=== PATIENT | female | born 1980 ===

== ENCOUNTER 2021-09-27 22:56 | Inpatient (IN) | payer SELFPAY ==
[2021-09-28 00:15] LABS: Bacteria,Urine 2+ /HPF (Negative); Bilirubin,Urine NEG (Negative); Blood,Urine MOD (Negative); Color,Urine Straw (Yellow); Mucus,Urine FEW /HPF; Urobilinogen,Urine < 2.0 mg/dL (<2.0)
[2021-09-28 00:18] LABS: Basophils # (Auto) 0.1 K/mm3 (0.0-0.1); Basophils % (Auto) 0.9 % (0.0-1.8); Eosinophils % (Auto) 0.6 % (0.0-4.3); Hematocrit 29.4 % (30.3-42.9); Hemoglobin 9.9 gm/dl (10.1-14.3); Lymphocytes # (Auto) 2.1 K/mm3 (1.2-5.4); Lymphocytes % (Auto) 25.5 % (13.4-35.0); Mean Corpuscular HGB Conc 34 % (30-34); Mean Corpuscular Volume 81 fl (79-97); Monocytes # (Auto) 0.4 K/mm3 (0.0-0.8); Monocytes % (Auto) 5.4 % (0.0-7.3); Platelet Count 251 K/mm3 (140-440); Red Blood Count 3.64 M/mm3 (3.65-5.03); Red Cell Distribution Width 17.8 % (13.2-15.2)
[2021-09-28 00:23] LABS: Creatinine,Urine 25.5 mg/dL (0.1-20.0)
[2021-09-28 00:32] LABS: Alanine Aminotransferase 13 units/L (7-56); Blood Urea Nitrogen 9 mg/dL (7-17); Calcium 8.3 mg/dL (8.4-10.2)
[2021-09-28 00:37] LABS: Albumin 2.8 g/dL (3.9-5); Hemolysis Index 27
[2021-09-28 00:42] LABS: BUN/Creatinine Ratio 18
[2021-09-28 01:21] LABS: Uric Acid 5.6 mg/dL (3.5-7.6)
--- NOTE | 2021-09-28 02:18 | Ultrasound Report ---
US OB follow up INDICATION / CLINICAL INFORMATION: Elevated BP COMPARISON: OB ultrasound 06/18/2018. No ultrasound images from current gestation are available. TECHNIQUE: Using a transcutaneous probe, multiple grayscale, color Doppler, and spectral Doppler imag es of the uterus and fetus were captured and stored. FINDINGS: Single cephalic fetus with heart rate of 152 bpm is demonstrated. Amniotic fluid index is normal measuring 10.9 cm EDUAR. Posterior/right lateral grade 1 placenta is demonstrated. Biparietal Diameter = 8.4 cm = 34, 0 weeks, days Head Circumference = 31.6 cm = 35, 3 weeks, days Abdominal Circumference = 30.1 cm = 34, 0 weeks, days Femur Length = 6.9 cm = 35, 4 weeks, days Average Ultrasound Age (AUA) = 34, 5 weeks, days Clinical age is 38 weeks 1 day based on LMP 01/04/2021. Estimated weight = 2475 g. IMPRESSION: 1. Single fetus with active heart rate with estimated composite gestational age of 34 weeks 5 days. Signer Name: Mehdi Wade II, MD Signed: 09/28/2021 2:14 AM Workstation Name: [id number]
[2021-09-28] MEDS ORDERED: ACETAMINOPHEN 325 MG TAB PO PRN (02:27)
[2021-09-28] MEDS ORDERED: TERBUTALINE 1 MG/1 ML INJ SUB-Q PRN (02:27)
[2021-09-28] MEDS ORDERED: fentaNYL 100 MCG/2 ML INJ IV PRN (02:27)
[2021-09-28] MEDS ORDERED: CARBOPROST TROMETHAMINE 250 MCG/1 ML INJ IM PRN (02:27)
[2021-09-28] MEDS ORDERED: BUTORPHANOL 2 MG/1 ML INJ IV PRN (02:27)
--- NOTE | 2021-09-28 02:27 | History and Physical Report ---
History of Present Illness Date of examination: 09/28/21 Date of admission: 09/28/2021 Chief complaint: Contractions History of present illness: 40-year-old at 38-1/7 weeks gestation presents to OB triage reporting contractions that are irregular. There is no vaginal bleeding. There is good movement. There is no leakage of fluid. Cervical exam was less than 1 cm dilated. In OB triage, the patient's blood pressures were greater than 140/90's. UPCR was elevated, and an estimated 24-hour urine protein value was greater than 600 mg. As such the patient fulfilled the criteria for preeclampsia. In addition, bedside ultrasound revealed that the estimated weight was in the 3rd percentile. As such, this patient fulfills the criteria for growth restriction. The patient is admitted to labor and delivery for induction of labor secondary to preeclampsia at 38 weeks gestation and growth restriction. Past History Past Medical History: no pertinent history Past Surgical History: no surgical history Family/Genetic History: none Social history: no significant social history - Obstetrical History Expected Date of Delivery: 10/11/21 Actual Gestation: 38 Week(s) 1 Day(s) : 4 Para: 3 Hx # Term Pregnancies: 3 Medications and Allergies Allergies Allergy/AdvReac Type Severity Reaction Status Date / Time No Known Allergies Allergy Verified 06/18/18 05:31 Review of Systems All systems: negative - Vital Signs Vital signs: Vital Signs Pulse Pulse Ox 81 99 09/27/21 23:13 09/27/21 23:13 Temp Pulse Resp BP Pulse Ox 98.1 F 76 146/79 97 09/27/21 23:23 09/28/21 02:23 09/28/21 01:17 09/28/21 02:23 - Physical Exam Breasts: Positive: normal Cardiovascular: Regular rate Lungs: Positive: Normal air movement Abdomen: Positive: normal appearance Genitourinary (Female): Positive: normal external genitalia, normal perenium Vulva: both: normal Vagina: Positive: normal moisture Uterus: Positive: enlarged Adnexa: both: normal Anus/Rectum: Positive: normal perianal skin Extremities: Positive: normal Deep Tendon Reflex Grade: Normal +2 - Obstetrical FHR: category 1 Uterine Contraction Monitor Mode: External Cervical Dilatation: 0.5 Cervical Effacement Percentage: 0 station: -3 Uterine Contraction Frequency (min): 8 Uterine Contraction Pattern: Irregular Results Result Diagrams: 09/28/21 04:16 09/27/21 23:58 Abnormal lab results 09/27/21 09/27/21 09/27/21 Range/Units 23:58 23:58 23:58 RBC 3.64 L (3.65-5.03) M/mm3 Hgb 9.9 L (10.1-14.3) gm/dl Hct 29.4 L (30.3-42.9) % MCH 27 L (28-32) pg RDW 17.8 H (13.2-15.2) % Sodium (137-145) mmol/L Carbon Dioxide (22-30) mmol/L Creatinine (0.6-1.2) mg/dL Calcium (8.4-10.2) mg/dL Alkaline Phosphatase (35-129) units/L Lactate Dehydrogenase (91-180) units/L Albumin (3.9-5) g/dL Urine WBC (Auto) 7.0 H (0.0-6.0) /HPF Urine Creatinine 25.5 H (0.1-20.0) mg/dL Urine Total Protein 50 H (5-11.8) mg/dL 09/27/21 Range/Units 23:58 RBC (3.65-5.03) M/mm3 Hgb (10.1-14.3) gm/dl Hct (30.3-42.9) % MCH (28-32) pg RDW (13.2-15.2) % Sodium 134 L (137-145) mmol/L Carbon Dioxide 19 L (22-30) mmol/L Creatinine 0.5 L (0.6-1.2) mg/dL Calcium 8.3 L (8.4-10.2) mg/dL Alkaline Phosphatase 139 H (35-129) units/L Lactate Dehydrogenase 214 H (91-180) units/L Albumin 2.8 L (3.9-5) g/dL Urine WBC (Auto) (0.0-6.0) /HPF Urine Creatinine (0.1-20.0) mg/dL Urine Total Protein (5-11.8) mg/dL All other labs normal. Ultrasound: report reviewed Assessment and Plan - Patient Problems (1) 38 weeks gestation of Current Visit: Yes Status: Acute Plan to address problem: care is up-to-date at [facility] . The GBS status is unknown at this time. Obtain records from the office during the day shift. Currently, the patient has no known risk factors for group B strep. Hence, no antibiotic prophylaxis at this time. If the patient is determined to have risk factors or develops risk factors for group B strep, then we will treat with penicillin at that time. (2) Preeclampsia Current Visit: Yes Status: Acute Plan to address problem: The patient has blood pressures greater than >140/90. UPCR is elevated and rev eals an estimated 24-hour urine protein greater than 600 mg. As such, this patient carries a diagnosis of preeclampsia at this time. The plan is induction of labor. (3) growth retardation, antepartum Current Visit: Yes Status: Acute Plan to address problem: The estimated weight is in the 3rd percentile. Etiology is unknown. The plan is induction of labor. (4) Advanced maternal age during in third trimester Current Visit: Yes Status: Acute Plan to address problem: Obtain records during the morning shift to review any genetic testing performed for this patient. (5) Encounter for induction of labor Current Visit: Yes Status: Acute Plan to address problem: Admit to labor and delivery. Ripen cervix with Cytotec.
[2021-09-28] MEDS ORDERED: LACTATED RINGERS 1,000 ML IV SCH (02:30)
[2021-09-28] MEDS ORDERED: miSOPROStol 25 MCG TAB PO SCH (03:00)
[2021-09-28] MEDS ORDERED: OXYTOCIN DRIP 30 UNITS/500 ML BAG IV SCH ×2 (03:00→08:00)
[2021-09-28 05:22] LABS: Hemoglobin 10.5 gm/dl (10.1-14.3); Mean Corpuscular HGB Conc 33 % (30-34); Mean Corpuscular Volume 81 fl (79-97); Platelet Count 270 K/mm3 (140-440); Red Blood Count 3.95 M/mm3 (3.65-5.03); Red Cell Distribution Width 17.9 % (13.2-15.2)
--- NOTE | 2021-09-28 06:31 | Procedure Note ---
OB Delivery Note - Delivery Date of Delivery: 09/28/21 Surgeon: CHRISTINE CARTER Water Rights Specialist: SEGUN CRUZ Estimated blood loss: 200cc - Vaginal Delivery presentation: vertex Delivery position: OA Intrapartum events: preeclampsia, precipitous labor- <3hr, other(please specify) ( growth restrcition, Advanced maternal age) Delivery induction: misoprostol (Mispoprostol was ordered for cervical ripening prior to induction of labor. However, that was not required as patient entered spontaneous labor.) Delivery monitor: external FHT, external uterine Route of delivery: Delivery placenta: spontaneous Delivery cord: 3 umbilical vessels Episiotomy: none Delivery laceration: 2nd degree Delivery repair: vicryl Anesthesia: local Delivery comments: This was a precipitous delivery. Second-degree laceration was repaired with 2-0 Vicryl. While this patient was diagnosed with preeclampsia, the patient had no signs or symptoms of severe features.
[2021-09-28] MEDS ORDERED: LANOLIN/ZINC/DIMETHICONE (LANSINOH) 7 GM TP PRN (06:33)
[2021-09-28] MEDS ORDERED: WITCH HAZEL/ GLYCERIN PAD TP PRN (06:33)
[2021-09-28] MEDS ORDERED: HYDROcodone/ACETAMINOPHEN 5-325 MG TAB PO PRN (06:33)
[2021-09-28] MEDS ORDERED: diphenhydrAMINE 25 MG CAP PO PRN (06:33)
[2021-09-28] MEDS ORDERED: ONDANSETRON 4 MG/2 ML INJ IV PRN (06:33)
[2021-09-28] MEDS ORDERED: MAGNESIUM HYDROXIDE (MOM) ORAL LIQD UDC PO PRN (06:33)
[2021-09-28 07:15] LABS: Hemoglobin 9.7 gm/dl (10.1-14.3); Mean Corpuscular HGB Conc 32 % (30-34); Mean Corpuscular Volume 81 fl (79-97); Platelet Count 244 K/mm3 (140-440); Red Blood Count 3.71 M/mm3 (3.65-5.03); Red Cell Distribution Width 17.5 % (13.2-15.2)
[2021-09-28 15:55] LABS: Hemoglobin 9.3 gm/dl (10.1-14.3)
[2021-09-28] MEDS: DOCUSATE SODIUM 100 MG CAP PO SCH ×2 (17:40→23:58)
[2021-09-28] MEDS: ACETAMINOPHEN 325 MG TAB PO PRN (17:40)
[2021-09-28] MEDS: PRENATAL VIT27-FE FUMARATE-FOLIC ACID VIT TAB PO SCH (17:44)
--- NOTE | 2021-09-29 10:35 | Progress Note ---
Assessment and Plan PPD#1 with asymptomatic anemia 1. Routine care and peds has baby on 48hr hold 2. For discharge home tomorrow Subjective Date of service: 09/29/21 Principal diagnosis: PPD#1 with pre-eclampsia, BP wnl Interval history: pt has no complaints. Denies headache. pt wants to go home today. Vag bleed less than a period and pt is bottle feeding now. Objective - Constitutional Vitals: Vital Signs - 12hr 09/29/21 09/29/21 09/29/21 00:22 04:30 07:28 Temperature 98.6 F 98.4 F 97.8 F Pulse Rate 76 78 78 Respiratory 18 18 20 Rate Blood Pressure 126/63 119/69 Blood Pressure 99/78 [Left] O2 Sat by Pulse 98 95 Oximetry O2 Sat by Pulse Oximetry [ Bilateral Throughout] 09/29/21 08:27 Temperature Pulse Rate Respiratory Rate Blood Pressure Blood Pressure [Left] O2 Sat by Pulse Oximetry O2 Sat by Pulse 98 Oximetry [ Bilateral Throughout] General appearance: Present: no acute distress - Neck Neck: normal ROM - Respiratory Respiratory effort: normal - Breasts Breasts: normal - Cardiovascular Rhythm: regular Extremities: No edema - Gastrointestinal General gastrointestinal: Present: soft, non-tender - Genitourinary Female genitourinary: other (Fundus firm, 1cm below umbilicus; lochia small) - Neurologic Neurologic: moves all extremities - Psychiatric Psychiatric: cooperative - Labs CBC & Chem 7: 09/28/21 15:28 09/27/21 23:58 Labs: Abnormal lab results 09/28/21 Range/Units 15:28 Hgb 9.3 L (10.1-14.3) gm/dl Hct 28.0 L (30.3-42.9) % Medications & Allergies - Medications Allergies/Adverse Reactions: Allergies No Known Allergies Allergy (Verified 06/18/18 05:31) Home Medications: Home Medications Medication Instructions Recorded Confirmed Last Taken Type No Known Home Medications [No 09/28/21 09/28/21 Unknown History Reported Home Medications] Active Medications: Generic Name Dose Route Start Last Admin Trade Name Freq PRN Reason Stop Dose Admin Acetaminophen 650 mg 09/28/21 06:33 09/28/21 17:40 Acetaminophen 325 Mg Tab PO 650 mg Q4H PRN Administration Pain MILD(1-3)/Fever >100.5/TIJERINA Hydrocodone Bitart/Acetaminophen 2 each 09/28/21 06:33 09/28/21 08:42 Hydrocodone/Acetaminophen 5-325 Mg Tab PO 2 each Q6H PRN Administration Pain, Moderate (4-6) Diphenhydramine HCl 25 mg 09/28/21 06:33 Diphenhydramine 25 Mg Cap PO Q6H PRN Itching Docusate Sodium 100 mg 09/28/21 10:00 09/28/21 23:58 Docusate Sodium 100 Mg Cap PO 100 mg BID BAR Administration Oxytocin/Sodium Chloride 30 units in 500 mls @ 1 mls/hr 09/28/21 08:00 Pitocin/Ns 30 Unit/500ml IV TITR BAR Protocol 1 MILLIUNITS/MIN Magnesium Hydroxide 30 ml 09/28/21 06:33 Magnesium Hydroxide (Mom) Oral Liqd Udc PO HS PRN Constipation Multi-Ingredient Ointment 1 applic 09/28/21 06:33 Lanolin/Zinc/Dimethicone (Lansinoh) 7 Gm TP PRN PRN Sore Nipples Multivitamins/Iron/Calcium 1 each 09/28/21 10:00 09/28/21 17:44 [id number] Fumarate-Folic Acid Vit Tab PO 1 each QDAY BAR Administration Ondansetron HCl 4 mg 09/28/21 06:33 Ondansetron 4 Mg/2 Ml Inj IV Q8H PRN Nausea And Vomiting Sodium Chloride 10 ml 09/28/21 07:00 Sodium Chloride 0.9% 10 Ml Flush Syringe IV PRN PRN LINE FLUSH Witch Letty/Glycerin 1 each 09/28/21 06:33 Witch Letty/ Glycerin Pad TP PRN PRN Hemorrhoid/cleansing/soothing
[2021-09-29] MEDS: DOCUSATE SODIUM 100 MG CAP PO SCH ×2 (12:56→23:17)
[2021-09-29] MEDS: PRENATAL VIT27-FE FUMARATE-FOLIC ACID VIT TAB PO SCH (12:57)
--- NOTE | 2021-09-30 08:18 | Progress Note ---
Assessment and Plan PPD#2 , asymptomatic anemia 1. Routine PP care and discharge pt home Subjective Date of service: 09/30/21 Principal diagnosis: PPD#2 Interval history: Pt denies headache and has no complaints Objective - Constitutional Vitals: Vital Signs - 12hr 09/29/21 09/30/21 09/30/21 22:50 00:08 07:21 Temperature 98.0 F 98.3 F Pulse Rate 81 80 Respiratory 18 20 Rate Blood Pressure 136/71 135/71 O2 Sat by Pulse 93 94 Oximetry O2 Sat by Pulse 95 Oximetry [ Bilateral Throughout] General appearance: Present: no acute distress - Respiratory Respiratory effort: normal - Breasts Breasts: deferred - Cardiovascular Rhythm: regular Extremities: No edema - Gastrointestinal General gastrointestinal: Present: soft, non-tender - Genitourinary Female genitourinary: other (Fundus firm, 3cm below umbilicus, non-tender. Lochia small) - Integumentary Integumentary: warm, dry - Neurologic Neurologic: moves all extremities - Psychiatric Psychiatric: cooperative - Labs CBC & Chem 7: 09/28/21 15:28 09/27/21 23:58 Medications & Allergies - Medications Allergies/Adverse Reactions: Allergies No Known Allergies Allergy (Verified 06/18/18 05:31) Home Medications: Home Medications Medication Instructions Recorded Confirmed Last Taken Type No Known Home Medications [No 09/28/21 09/28/21 Unknown History Reported Home Medications] Active Medications: Generic Name Dose Route Start Last Admin Trade Name Freq PRN Reason Stop Dose Admin Acetaminophen 650 mg 09/28/21 06:33 09/28/21 17:40 Acetaminophen 325 Mg Tab PO 650 mg Q4H PRN Administration Pain MILD(1-3)/Fever >100.5/TIJERINA Hydrocodone Bitart/Acetaminophen 2 each 09/28/21 06:33 09/28/21 08:42 Hydrocodone/Acetaminophen 5-325 Mg Tab PO 2 each Q6H PRN Administration Pain, Moderate (4-6) Diphenhydramine HCl 25 mg 09/28/21 06:33 Diphenhydramine 25 Mg Cap PO Q6H PRN Itching Docusate Sodium 100 mg 09/28/21 10:00 09/29/21 23:17 Docusate Sodium 100 Mg Cap PO 100 mg BID BAR Administration Oxytocin/Sodium Chloride 30 units in 500 mls @ 1 mls/hr 09/28/21 08:00 Pitocin/Ns 30 Unit/500ml IV TITR BAR Protocol 1 MILLIUNITS/MIN Magnesium Hydroxide 30 ml 09/28/21 06:33 Magnesium Hydroxide (Mom) Oral Liqd Udc PO HS PRN Constipation Multi-Ingredient Ointment 1 applic 09/28/21 06:33 Lanolin/Zinc/Dimethicone (Lansinoh) 7 Gm TP PRN PRN Sore Nipples Multivitamins/Iron/Calcium 1 each 09/28/21 10:00 09/29/21 12:57 [id number] Fumarate-Folic Acid Vit Tab PO 1 each QDAY BAR Administration Ondansetron HCl 4 mg 09/28/21 06:33 Ondansetron 4 Mg/2 Ml Inj IV Q8H PRN Nausea And Vomiting Sodium Chloride 10 ml 09/28/21 07:00 Sodium Chloride 0.9% 10 Ml Flush Syringe IV PRN PRN LINE FLUSH Witch Letty/Glycerin 1 each 09/28/21 06:33 Witch Letyt/ Glycerin Pad TP PRN PRN Hemorrhoid/cleansing/soothing
--- NOTE | 2021-09-30 08:18 | Discharge Summary ---
Providers - Providers Date of Admission: 09/28/21 02:27 Date of discharge: 09/30/21 Attending physician: CHRISTINE CARTER MD Primary care physician: CHRISTINE CARTER MD Hospitalization Reason for admission: IUP at term Delivery: Episiotomy: none Laceration: none Other procedures: none complications: none Discharge diagnosis: IUP at term delivered Hospital course: precipitous term vaginal delivery with preeclampsia and BP remained wnl and no severe features. course uncomplicated. Condition at discharge: Good Disposition: 01 HOME / SELF CARE / HOMELESS Plan - Provider Discharge Summary Activity: no sex for 6 weeks Diet: routine Instructions: routine Additional instructions: [] Smoking cessation referral if applicable(refer to patient education folder for contact #) [] Refer to [facility] Booklet Call your doctor immediately for: * Fever > 100.5 * Heavy vaginal bleeding ( >1 pad per hour) * Severe persistent headache * Shortness of breath * Reddened, hot, painful area to leg or breast * Drainage or odor from incision. * Keep incision clean and dry at all times and follow doctor's instructions regarding bathing/showering - Follow up plan Follow up: CHRISTINE CARTER MD [Primary Care Provider] - 7 Days BELEM DOWLING MD [Staff Physician] - 6 Weeks
[2021-09-30] MEDS: DOCUSATE SODIUM 100 MG CAP PO SCH (09:56)
[2021-09-30] MEDS: PRENATAL VIT27-FE FUMARATE-FOLIC ACID VIT TAB PO SCH (09:56)
[2021-09-30] MEDS: ACETAMINOPHEN 325 MG TAB PO PRN (10:09)
[2021-09-30 11:50] VITALS: BP 131/78
== END 2021-09-30 12:05 | disposition home or self-care (01) | DRG 807 ==
LOC: TRG 22:56 → APU 23:07 → TRG 09-28 02:27 → LD 09-28 02:27 → OB 09-28 08:23
PROVIDERS: ADMIT Obstetrics & Gynecology Gynecology; ATTEND Obstetrics & Gynecology Gynecology
PROC: 0KQM0ZZ Repair Perineum Muscle, Open Approach (ICD-10-PCS; principal; 2021-09-28)
PROC: 10E0XZZ Delivery of Products of Conception, External Approach (ICD-10-PCS; 2021-09-28)
DX: O14.94 Unspecified pre-eclampsia, complicating childbirth (principal); Z37.0 Single live birth; Z3A.38 38 weeks gestation of pregnancy; O36.5930 Maternal care for other known or suspected poor fetal growth, third trimester, not applicable or unspecified; Z20.822 Contact with and (suspected) exposure to COVID-19; O62.3 Precipitate labor; O70.1 Second degree perineal laceration during delivery; O90.81 Anemia of the puerperium
CPT/HCPCS: 36415; 76816; 80053; 81001; 82570; 83615; 84156; 84550; 85014; 85018; 85025; 85027; 86592; 86850; 86900; 86901; 88307; G0378; J3010; U0003